=== PATIENT | male | born 1955 | race Caucasian/White ===

== ENCOUNTER 2023-08-15 06:29 | Day surgery (SDC) | payer MEDICARE, OTHER, SELFPAY ==
[2023-08-15] VITALS (9 sets, daily range): BP systolic 90–121; BP diastolic 63–72; BMI 23.9
[2023-08-15 07:09] LABS: Glucose - Point of Care 92 mg/dl (70-99)
[2023-08-15] MEDS: TYLENOL 1000 MG PO (07:15)
[2023-08-15] MEDS: CELEBREX 200 MG PO (07:15)
[2023-08-15] MEDS: NORMOSOL-R 1000 IV (07:15)
[2023-08-15 08:57] LABS: Glucose - Point of Care 92 mg/dl (70-99)
[2023-08-15 09:42] LABS: Glucose - Point of Care 94 mg/dl (70-99)
== END 2023-08-15 11:15 | disposition home or self-care (01) ==
LOC: SDS 06:29
PROVIDERS: ATTENDING PHYSICIAN Orthopaedic Surgery Hand Surgery
DX: M18.12 Unilateral primary osteoarthritis of first carpometacarpal joint, left hand (principal)
CPT/HCPCS: 25447; 26480; 82962; C1776